=== PATIENT | female | born 1970 | race Caucasian/White ===

== ENCOUNTER 2017-10-13 11:54 | Day surgery (SDC) | payer OTHER ==
[2017-10-13] MEDS ORDERED: PROPOFOL 40 ML (16:07)
[2017-10-13] MEDS ORDERED: ROCURONIUM 50 MG INJ (16:07)
[2017-10-13] MEDS ORDERED: MIDAZOLAM 1 MG/ML 2 ML INJ (16:07)
[2017-10-13] MEDS ORDERED: ONDANSETRON 4 MG INJ (16:21)
[2017-10-13] MEDS ORDERED: METOCLOPRAMIDE 10 MG INJ (16:21)
[2017-10-13] MEDS ORDERED: KETOROLAC 30 MG INJ (16:22)
[2017-10-13] MEDS ORDERED: DEXAMETHASONE 4 MG/ML 1 ML INJ (16:22)
[2017-10-13] MEDS ORDERED: FENTAnyl 50 MCG/ML VIAL (16:49)
[2017-10-13] MEDS ORDERED: ACETAMINOPHEN 325 MG TAB PO (17:00)
[2017-10-13] MEDS ORDERED: hydrALAzine 20 MG INJ IV (17:30)
[2017-10-13] MEDS ORDERED: OXYCODONE/ACETAMINOPHEN (5/325) TAB PO ×2 (17:30)
[2017-10-13] MEDS ORDERED: ONDANSETRON 4 MG INJ IV (17:30)
[2017-10-13] MEDS ORDERED: MEPERIDINE 25 MG INJ IV (17:30)
[2017-10-13] MEDS ORDERED: LABETALOL HCL 20MG INJ IV (17:30)
[2017-10-13] MEDS ORDERED: EPHEDrine SULFATE 50 MG/5 ML SYG IV (17:30)
[2017-10-13] MEDS ORDERED: DIPHENHYDRAMINE 50 MG INJ IV (17:30)
[2017-10-13] MEDS ORDERED: METOCLOPRAMIDE 10 MG INJ IV (17:30)
[2017-10-13] MEDS ORDERED: FENTAnyl 50 MCG/ML VIAL IV ×3 (17:30)
[2017-10-13] MEDS ORDERED: HYDROmorphONE 1 MG/5 ML IV SYRINGE IV ×3 (17:30)
== END 2017-10-13 18:02 | disposition home or self-care (01) ==
LOC: SDS 11:54
DX: N92.0 Excessive and frequent menstruation with regular cycle (principal)
CPT/HCPCS: 58558; 86850; 86900; 86901; 88305

== ENCOUNTER 2018-06-17 07:32 | Observation (INO) | payer OTHER ==
[~2018-06-17 07:32] MED LIST: CEFAZOLIN 1 GM INJ; PROPOFOL 200 MG INJ; SEVOFLURANE 15 MIN
[2018-06-17] MEDS: SOD CHLORIDE 0.9% 1,000 ML IV (09:00)
[2018-06-17] MEDS ORDERED: DIPHENHYDRAMINE 50 MG INJ IV (11:30)
[2018-06-17] MEDS ORDERED: EPHEDrine SULFATE 50 MG/5 ML SYG IV (11:30)
[2018-06-17] MEDS ORDERED: hydrALAzine 20 MG INJ IV (11:30)
[2018-06-17] MEDS ORDERED: FENTAnyl 50 MCG/ML VIAL IV ×2 (11:30)
[2018-06-17] MEDS ORDERED: LABETALOL HCL 20MG INJ IV (11:30)
[2018-06-17] MEDS ORDERED: OXYCODONE/ACETAMINOPHEN (5/325) TAB PO (11:30)
[2018-06-17] MEDS ORDERED: HYDROmorphONE 1 MG/5 ML IV SYRINGE IV ×2 (11:30)
[2018-06-17] MEDS ORDERED: PROCHLORPERAZINE 10 MG INJ IV (11:30)
[2018-06-17] MEDS ORDERED: PROPOFOL 20 ML (11:43)
[2018-06-17] MEDS ORDERED: LIDOCAINE 2% (SDV) 5 ML INJ (11:43)
[2018-06-17] MEDS ORDERED: FENTAnyl 50 MCG/ML VIAL (11:44)
[2018-06-17] MEDS ORDERED: MIDAZOLAM 1 MG/ML 2 ML INJ (11:44)
[2018-06-17] MEDS: CEFAZOLIN 2 GM/50 ML (PMX) 50 ML IVPB (12:02)
[2018-06-17] MEDS ORDERED: DEXAMETHASONE 4 MG/ML 5 ML INJ (12:03)
[2018-06-17] MEDS ORDERED: ONDANSETRON 4 MG INJ (12:03)
[2018-06-17] MEDS ORDERED: FAMOTIDINE 20 MG INJ (12:04)
[2018-06-17] MEDS ORDERED: HYDROCODONE/APAP (7.5/325) TAB PO (13:00)
[2018-06-17] MEDS: FENTAnyl 50 MCG/ML VIAL IV (13:02)
[2018-06-17] MEDS: ONDANSETRON 4 MG INJ IV (13:02)
[2018-06-17] MEDS: HYDROmorphONE 1 MG/5 ML IV SYRINGE IV (13:02)
[2018-06-17] MEDS: MEPERIDINE 25 MG INJ IV (13:16)
[2018-06-17] MEDS: OXYCODONE/ACETAMINOPHEN (5/325) TAB PO ×2 (13:55→18:42)
[2018-06-17] MEDS ORDERED: ONDANSETRON 4 MG INJ IV (14:30)
[2018-06-17] MEDS: D5W-0.45 NACL + KCL 20 MEQ 1,000 ML IV (15:40)
[2018-06-17] MEDS: morphine 2 MG INJ IV ×2 (15:44→21:24)
[2018-06-17] MEDS: LOSARTAN 50 MG TAB PO (21:00)
[2018-06-18] MEDS: D5W-0.45 NACL + KCL 20 MEQ 1,000 ML IV ×2 (00:20→06:30)
[2018-06-18 05:27] LABS: ADD MAN DIFF? NO
[2018-06-18 05:36] LABS: BASOPHILS % 0.2 % (0.0-2.0); HEMOGLOBIN 13.2 g/dl (12.0-16.0); LYMPHOCYTES # 0.9 10^3/ul (0.8-2.9); LYMPHOCYTES % 7.6 % (15.0-51.0); MEAN CORPUSCULAR HEMOGLOBIN 28.3 pg (29.0-33.0); MEAN CORPUSCULAR VOLUME 85.7 fl (82.0-101.0); MEAN PLATELET VOLUME 11.4 fl (7.4-10.4); MONOCYTE # 0.5 10^3/ul (0.3-0.9); MONOCYTES % 4.1 % (0.0-11.0); NEUTROPHIL # 10.8 10^3/ul (1.6-7.5); NEUTROPHILS % 87.8 % (39.0-77.0); PLATELET COUNT 284 10^3/UL (140-415); RED BLOOD COUNT 4.67 10^6/ul (4.20-5.40); RED CELL DISTRIBUTION WIDTH 12.8 % (11.5-14.5)
[2018-06-18 05:36] LABS: WHITE BLOOD COUNT 12.3 10^3/ul (4.8-10.8)
[2018-06-18 05:53] LABS: ANION GAP 6 (5-13); BLOOD UREA NITROGEN 10 mg/dl (7-20); CALCIUM 8.8 mg/dl (8.4-10.2); CARBON DIOXIDE 26 mmol/L (21-31); CHLORIDE 104 mmol/L (97-110); CREATININE 0.72 mg/dl (0.44-1.00); Estimated GFR > 60 mL/min (>60); GLUCOSE 137 mg/dl (70-220); SODIUM 136 mmol/L (135-144)
[2018-06-18] MEDS: PANTOPRAZOLE (EC) 40 MG TAB PO (06:02)
[2018-06-18] MEDS: morphine 2 MG INJ IV (06:02)
[2018-06-18] MEDS: NIFEdipine (XL) 30 MG TAB PO (08:29)
[2018-06-18] MEDS: LOSARTAN 50 MG TAB PO (08:29)
[2018-06-18] MEDS: OXYCODONE/ACETAMINOPHEN (5/325) TAB PO ×2 (10:00→13:58)
== END 2018-06-18 14:05 | disposition home or self-care (01) ==
LOC: SDS 07:32 → REC 14:22 → MS1 15:08
DX: N63.0 Unspecified lump in unspecified breast (principal); I10 Essential (primary) hypertension; M51.36 Other intervertebral disc degeneration, lumbar region; E66.9 Obesity, unspecified; Z68.41 Body mass index [BMI] 40.0-44.9, adult; M17.11 Unilateral primary osteoarthritis, right knee
CPT/HCPCS: 19120; 80048; 83036; 84703; 85025; 88307